=== PATIENT | female | born 1990 | race Caucasian/White ===

== ENCOUNTER 2016-10-06 21:30 | Emergency (ER) | payer OTHER ==
[~2016-10-06] VITALS: Ht 165.1 cm; Wt 99.8 kg
[2016-10-06 21:35] VITALS: BP 130/97
--- NOTE | 2016-10-06 22:23 | NUR ---
PATIENT AMBULATED TO ER OF1.
--- NOTE | 2016-10-06 23:23 | NUR ---
PATIENT BEING EVALUATED BY DR. HIGGINS.
--- NOTE | 2016-10-07 00:25 | NUR ---
Unable to find pt to give d/c instructions and Rx. Pt left without instructions and RX. Called phone number listed on face sheet and left message that instructions and Rx are here waiting for her.
--- NOTE | 2016-10-07 13:24 | NUR ---
ADDENDUM: LEFT MESSAGE TO JAILER/TRAINING OFFICER HER DISCHARGE INSTRUCTIONS AND PRESCRIPTION.
== END 2016-10-07 00:25 | disposition left against medical advice (07) ==
LOC: MED 21:30
DX: G44.209 Tension-type headache, unspecified, not intractable (principal)
CPT/HCPCS: 70450; 99284